=== PATIENT | female | born 1990 | race Caucasian/White ===

== ENCOUNTER 2017-11-28 10:48 | Emergency (ER) | payer MEDICAID | END 2017-11-28 10:59 | disposition home or self-care (01) | LOC: E/R 10:59 | DX: J02.9 Acute pharyngitis, unspecified (principal) | CPT/HCPCS: 99284; Z7502 ==

== ENCOUNTER 2018-10-25 09:35 | Emergency (ER) | payer MEDICAID ==
[2018-10-25] MEDS: KETOROLAC 30 MG INJ IM (10:42)
== END 2018-10-25 10:48 | disposition home or self-care (01) ==
LOC: FTE 09:35
DX: J06.9 Acute upper respiratory infection, unspecified (principal)
CPT/HCPCS: 81025; 96372; 99284-25